=== PATIENT | female | born 1965 | race Caucasian/White ===

== ENCOUNTER → 2019-12-13 | Day surgery (SDC) | payer OTHER ==
[~2019-12-13] MED LIST: GABA600T7 PO; HYDROmorphone 2 MG/ML VIAL IV PRN; IV RINGERS,LACTATED 1000ML 1,000 ML IV SCH; LEVO112T2 PO; LIDOCAINE 2% PF 5 ML VIAL. ONE; MORPHINE SULFATE 2 MG/ML VIAL. IV PRN; ONDANSETRON PF 4 MG/2 ML VIAL. IV PRN; PROCHLORPERAZINE 10 MG/2 ML VIAL. IV PRN; PROPOFOL 60 ML IV ONE; SERT100T PO; fentaNYL PF VIAL 100 MCG/2 ML VIAL IV PRN
[2019-12-13 11:15] VITALS: BP 111/61
--- NOTE | 2019-12-16 17:06 | PATHOLOGY ---
[facility] Accession Number: [id number] . 01 Material submitted: . PART A: jejunum - JEJUNUM PART B: stomach - GASTRIC POUCH PART C: esophagus - ESOPHAGUS AT 30CM PART D: colon - RANDOM COLON BIOPSY . 01 Clinical history: . Anemia, GERD, history of gastric bypass. . 02 Diagnosis: A. Small bowel biopsies, jejunum: - No significant pathologic abnormalities. . B. Gastric biopsies, gastric pouch: - Superficial congestion and focal mild chronic inflammation. . C. 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 . D. Colonic mucosa, random colon biopsies: - No significant pathologic abnormalities. [facility] 12/16/2019 1647 Local . 02 Comment: Sections of the jejunal biopsy reveal segments of small intestine mucosa. Where best oriented, there are no sprue-like changes or significant inflammatory changes. . Sections of the gastric pouch biopsy reveal a segment of gastric body mucosa showing superficial congestion and focal mild chronic inflammation, and a minute segment of small intestine mucosa showing no significant inflammatory changes. A properly controlled immunoperoxidase stain for Helicobacter is negative for Helicobacter organisms. . Sections of the esophageal biopsy at 30 cm predominantly reveal segments of focally tangentially oriented hyperplastic squamous esophageal mucosa consistent with reflux esophagitis. There are focal attached small portions of columnar lined mucosa showing chronic inflammation and intestinal metaplasia with goblet cells consistent Mortensen's change. There is no dysplasia or evidence of malignancy. . Sections of the random colon biopsy reveal multiple segments of colonic mucosa containing two mucosal-associated lymphoid aggregates. There is no evidence of a chronic destructive colitis, lymphocytic colitis, or collagenous colitis. (JPM/db; 12/16/2019) . Special stain performed: Immunoperoxidase stain for Helicobacter on B1. . 02 Electronically signed: . Tenzin May MD, Pathologist NPI- [id number] . 01 Gross description: . A. Received in formalin labeled "Radha Alcaraz, jejunum BX" is a 1.1 x 0.4 x 0.1 cm aggregate of tello-brown soft tissue fragments. The specimen is submitted entirely in A1. . B. Received in formalin labeled "Radha Alcaraz, gastric pouch BX" is a 0.5 x 0.3 x 0.1 cm aggregate of tello-brown soft tissue fragments. The specimen is submitted entirely in B1. . C. Received in formalin labeled "Radha Alcaraz, esophagus at 30 cm BX" is a 0.7 x 0.4 x 0.1 cm aggregate of tello-brown soft tissue fragments. The specimen is submitted entirely in C1. . D. Received in formalin labeled "Radha Alcaraz, random colon BX" is a 1.2 x 0.4 x 0.1 cm aggregate of tello-brown soft tissue fragments. The specimen is submitted entirely in D1. ([facility] [place]; 12/15/2019) [facility] 12/15/2019 1019 Local . 02 Pathologist provided ICD-10: K29.50, K22.70 . 02 CPT . 789560, 465948, 562187, [id number], [id number] Specimen Comment: A courtesy copy of this report has been sent to [phone], [phone] Specimen Comment: [id number] Specimen Comment: Report sent to / DR MARIE Performed at: 01 [facility] [address], [place] [id number] MD Bertrand Perez MD Phone: [phone] Performed at: 02 [facility] [address], [place] [id number] MD Tenzin May MD Phone: [phone]
== END | disposition home or self-care (01) ==
LOC: ENDOS 08:39
PROVIDERS: ATTEND Internal Medicine Gastroenterology
DX: D50.9 Iron deficiency anemia, unspecified (principal); K21.0 Gastro-esophageal reflux disease with esophagitis; K29.50 Unspecified chronic gastritis without bleeding; K63.89 Other specified diseases of intestine; K64.2 Third degree hemorrhoids; K64.4 Residual hemorrhoidal skin tags; J45.909 Unspecified asthma, uncomplicated; E89.0 Postprocedural hypothyroidism; F32.9 Major depressive disorder, single episode, unspecified; Z98.84 Bariatric surgery status; Z86.010 Personal history of colon polyps; Z90.49 Acquired absence of other specified parts of digestive tract; Z87.39 Personal history of other diseases of the musculoskeletal system and connective tissue; Z98.890 Other specified postprocedural states; Z90.710 Acquired absence of both cervix and uterus
CPT/HCPCS: 43239; 45380; J2704; J3490